=== PATIENT | female | born 1960 | race Caucasian/White ===

== ENCOUNTER 2016-08-02 07:45 | Day surgery (SDC) | payer OTHER ==
[~2016-08-02] VITALS: Ht 167.6 cm; Wt 130.9 kg
[2016-08-02] MEDS ORDERED: HYDR12.57 PO (08:07)
[2016-08-02] MEDS ORDERED: LEVO125T4 PO (08:07)
[2016-08-02 08:16] VITALS: BP 151/92; PULSE 65; RESP 20; TEMP 97.7; O2SAT 100
[2016-08-02] MEDS ORDERED: ceFAZolin 2 GM PREMIX 50 ML - implanted port/tunneled catheter insertion IV SCH (08:30)
[2016-08-02 09:07] LABS: APTT (PATIENT) 27.1 SEC (24.3-30.1); PROTHROMBIN TIME - PATIENT 10.9 SEC (9.8-11.6)
[2016-08-02] MEDS ORDERED: MIDAZOLAM HCL 5 MG/5 ML VIAL ONE (09:15)
[2016-08-02] MEDS ORDERED: fentaNYL CITRATE 250 MCG/5 ML AMP ONE (09:16)
[2016-08-02] MEDS ORDERED: LIDOCAINE 1%/EPINEPHrine 1:100,000 SOLN 30 ML VIAL ONE (09:54)
--- NOTE | 2016-08-02 10:26 | PD.RAD ---
Post Procedure Progress Note Procedure Date: Aug 02, 2016 Supervising Radiologist: Jake Bentley Estimated blood loss: 2CC Anesthesia: Local, Conscious Sedation Plan of Activity Patient to Unit: ROPU Patient Condition: Good Additional Comments: Port tubing easily removed from the right atria port and Residual tubing removed from the left chest See PACS Report for procedural detail/treatment Jake Bentley MD Aug 02, 2016 10:26
[2016-08-02 10:40] VITALS: BP 127/77; PULSE 55; RESP 18; TEMP 97.6; O2SAT 98
[2016-08-02 11:00] VITALS: BP 112/60; PULSE 54; RESP 16; O2SAT 94
[2016-08-02 11:30] VITALS: BP 109/58; PULSE 56; RESP 16; O2SAT 94
[2016-08-02 12:07] VITALS: BP 119/68; PULSE 57; RESP 18; O2SAT 97
--- NOTE | 2016-08-02 14:53 | RADRPT ---
EXAM DATE/TIME: 08/02/2016 09:28 COMPARISON: No previous studies available for comparison. INDICATIONS : Patient with history of breast cancer in need of Port catheter retrieval. MEDICAL HISTORY : Hypothyroidism, Obesity, Arthritis, Breast cancer, Back pain, Glaucoma SURGICAL HISTORY : Cholecystectomy, Mastectomy right breast, Umbilical hernia repair ENCOUNTER: Initial ACUITY: 2 weeks PAIN SCORE: 0/10 FLUORO TIME: 1.4 minutes IMAGE SERIES: 0 ACCESS SITE: Right Jugular vein SEDATION TIME: 30 minutes MEDICATION(S): 1.) 5 mg midazolam (Versed) IV 2.) 250 mcg fentanyl (Sublimaze) IV Prophylactic antibiotics were administered with appropriate pre-procedure timing. Vancomycin within 2 hrs of procedure, Ancef (or alternative) within 1 hr of procedure. DEVICE(S): 1.) Superior vena cava Amplatz [place] snare 15mm FINDINGS: The risk, benefits and potential complications informed body retrieval from the right atrium were dis cussed. Written consent was obtained. The patient's right neck was prepped and draped in the usual sterile fashion. The skin above the inte rnal jugular vein was anesthetized with 10 cc of 1% lidocaine. The patient received conscious sedatio n during the procedure as noted above. The right internal jugular vein was accessed under ultrasound visualization using a micropuncture ana lilia hnique. The micropuncture set was exchanged for a 10 Polish hemostatic sheath. A 0.035 angled Glidewi re was advanced out into the right atria. A snare catheter was advanced over the wire. The Infuse-a-P ort tubing was easily snared and removed from the patient without difficulty. The patient tolerated procedure well. Attention was then turned to the left chest. This are was prepped and draped in usual sterile fashion . The remaining portions of the Xlbdqb-j-Kazo were removed from the right chest without difficulty. CONCLUSION: 1. Successful removal of the piece of Eqooxv-l-Junu tubing from the right atria. 2. Successful removal the port from the left chest. 3. Followup fluoroscopic imaging was performed. No retained fragments were seen. Jake Bentley MD on August 02, 2016 at 14:49 Board Certified Radiologist. This report was verified electronically.
== END 2016-08-02 12:52 | disposition home or self-care (01) ==
LOC: HROP 07:45 → HRIP 07:48 → HROP 12:52
PROVIDERS: ATTEND Surgery
DX: Z45.2 Encounter for adjustment and management of vascular access device (principal); Z85.3 Personal history of malignant neoplasm of breast
CPT/HCPCS: 36590; 37197; 76937; 77001; 85610; 85730; 99152; 99153; C1769; C1894; J0690; J2250; J3010; C1773

== ENCOUNTER → 2016-10-18 | Day surgery (SDC) | payer OTHER ==
[~2016-10-18] MED LIST: HYDR12.57 PO; LACTATED RINGER'S 1000 ML INJ 1,000 ML ONE; LEVO125T4 PO; PROPOFOL 500 MG/50 ML BTL IV ONE
--- NOTE | 2016-10-18 07:54 | GIPROC ---
[facility] [address], [address] EGD PROCEDURE REPORT EXAM DATE: 10/18/2016 PATIENT NAME: Shira Campbell MR #: [id number] BIRTHDATE: 1960 ATTENDING: Kaz Kauffman MD ORDER #: [id number] CHIEF CLERK SHELTER: Tiffanie Bustillos LABORER MINE STATUS: outpatient INDICATIONS: The patient is a 56 yr old female here for an EGD due to Preoperative assessment PROCEDURE PERFORMED: EGD w/ biopsy MEDICATIONS: None and Per Anesthesia. TOPICAL ANESTHETIC: none CONSENT: The patient understands the risks and benefits of the procedure and understands that these risks include, but are not limited to: sedation, allergic reaction, infection, perforation and/or bleeding. Alternative means of evaluation and treatment include, among others: physical exam, x-rays, and/or surgical intervention. The patient elects to proceed with this endoscopic procedure. medical equipment was checked for proper function. Hand hygiene and appropriate measures for infection prevention was taken. After the risks, benefits and alternatives of the procedure were thoroughly explained, Informed consent was verified, confirmed and timeout was successfully executed by the treatment team. The patient was anesthetized with anesthesia and the EG-[id number] ([id number]) endoscope was introduced through the mouth and advanced to the second portion of the duodenum. Antrum was biopsy for H. pylori. Retroflexed views revealed no abnormalities The gastroscope was then slowly withdrawn and removed. The endoscopy was otherwise normal. ADVERSE EVENTS: There were no complications. IMPRESSIONS: 1. Normal endoscopy otherwise 2. Retroflexed views revealed no abnormalities RECOMMENDATIONS: Await biopsy results. Biopsy results will not be ready for 7-10 days. If you don't hear from us in two weeks, call our office for biopsy results. PATIENT CONDITION: fair DISPOSITION: Home REPEAT EXAM: NONE Kaz Kauffman MD eSigned: Kaz Kauffman MD 10/18/2016 7:54 AM cc: Jake Butt M.D.
== END | disposition home or self-care (01) ==
LOC: ESDC 06:05
PROVIDERS: ATTEND Surgery
DX: Z01.818 Encounter for other preprocedural examination (principal); K29.50 Unspecified chronic gastritis without bleeding
CPT/HCPCS: 00740; 43239; 88305; 88312; J3010; J7120

== ENCOUNTER 2017-02-10 09:00 | Inpatient (IN) | payer OTHER ==
[~2017-02-10] VITALS: Ht 167.6 cm; Wt 129.7 kg
[~2017-02-10 09:00] MED LIST changes: -LACTATED RINGER'S 1000 ML INJ 1,000 ML ONE; -PROPOFOL 500 MG/50 ML BTL IV ONE
[2017-02-12] MEDS ORDERED: ACETAMINOPHEN 1000 MG/100 ML 100 ML IV SCH (07:00)
[2017-02-12] MEDS ORDERED: metroNIDAZOLE 500 MG INJ 100 ML IV SCH (07:00)
[2017-02-12] MEDS ORDERED: INSULIN HUMAN REGULAR 1,000 UNITS/10 ML VIAL SQ PRN (07:00)
[2017-02-12] MEDS ORDERED: ceFAZolin 2 GM PREMIX 50 ML IV SCH (07:00)
[2017-02-12] MEDS ORDERED: ONDANSETRON HCL 4 MG/2 ML VIAL IV PUSH SCH (07:00)
[2017-02-12] MEDS ORDERED: METOPROLOL TARTRATE 25 MG TAB PO PRN (07:00)
[2017-02-12] MEDS ORDERED: APREPITANT 40 MG CAP PO SCH (07:00)
[2017-02-12] MEDS ORDERED: SODIUM CHLORID 0.9% 500 ML IV PRN (07:00)
[2017-02-12] MEDS ORDERED: POVIDONE IODINE 5% (ANTISEPSIS KIT) 4 APPLICATIONS EACH NARE PRN (07:00)
[2017-02-12] MEDS ORDERED: SCOPOLAMINE 1.5 MG PATCH T-DERMAL SCH (07:00)
[2017-02-12] MEDS ORDERED: CHLORHEXIDINE GLUCONATE 2 % 1 PACK (2 CLOTHS) TOPICAL PRN (07:00)
[2017-02-12] MEDS ORDERED: LACTATED RINGER'S 1000 ML IV PRN (07:00)
[2017-02-12] MEDS ORDERED: BUPIVACAINE/EPINEPHRINE 0.25% 50 ML VIAL ONE (10:54)
[2017-02-12] MEDS ORDERED: DEXAMETHASONE SOD PHOS 4 MG/ML VIAL ONE (11:59)
[2017-02-12] MEDS ORDERED: FAMOTIDINE 20 MG/2 ML VIAL ONE (11:59)
[2017-02-12] MEDS ORDERED: MIDAZOLAM HCL 2 MG/2 ML VIAL ONE (11:59)
[2017-02-12] MEDS ORDERED: METHYLENE BLUE 10 MG/ML VIAL OTHER ONE (13:07)
[2017-02-12] MEDS ORDERED: DO NOT ADM ANY ANTICOAGULANT DRUGS PRN (14:13)
[2017-02-12] MEDS ORDERED: diphenhydrAMINE HCL 50 MG/ML VIAL IV PUSH PRN (14:15)
[2017-02-12] MEDS ORDERED: ONDANSETRON HCL 4 MG/2 ML VIAL IV PUSH PRN (14:15)
[2017-02-12] MEDS ORDERED: ENALAPRILAT 1.25 MG/ML VIAL IV PUSH PRN (14:15)
[2017-02-12] MEDS ORDERED: ACETAMINOPHEN 325MG/HYDROcodone 7.5MG/15ML UDC PO PRN (14:15)
[2017-02-12] MEDS ORDERED: diphenhydrAMINE HCL ELIXIR 12.5 MG/5 ML CUP PO PRN (14:15)
[2017-02-12] MEDS ORDERED: Post-op Orders (for Pharmacy) MISC OTHER ONE (14:15)
[2017-02-12] MEDS ORDERED: SODIUM CHLORIDE 0.9% FLUSH 10 ML FLUSH IV FLUSH PRN (14:15)
[2017-02-12] MEDS ORDERED: *morphine SULFATE 8 MG/ML PERIprocedure ONLY ONE (14:20)
[2017-02-12] MEDS: D5-1/2 NS + KCL 20 MEQ INJ 1,000 ML IV SCH ×2 (14:30→23:38)
[2017-02-12] MEDS: METOCLOPRAMIDE HCL 10 MG/2 ML VIAL IV PUSH SCH ×2 (15:00→19:34)
[2017-02-12] MEDS: HYDROmorphone HCL PF 1 MG/ML VIAL IV PUSH PRN (15:11)
[2017-02-12 16:00] VITALS: BP 116/53; PULSE 55; RESP 17; TEMP 98.6; O2SAT 95
[2017-02-12] MEDS: ENOXAPARIN SODIUM 40 MG/0.4 ML SYRINGE SQ SCH (18:15)
[2017-02-12] MEDS: ACETAMINOPHEN 325MG/HYDROcodone 7.5MG/15ML UDC PO PRN (18:15)
[2017-02-12] MEDS: metroNIDAZOLE 500 MG INJ 100 ML IV SCH (19:35)
[2017-02-12] MEDS: SODIUM CHLORIDE 0.9% FLUSH 10 ML FLUSH IV FLUSH SCH (19:36)
[2017-02-12 20:27] VITALS: BP 102/58; PULSE 54; RESP 17; TEMP 96.4; O2SAT 92
--- NOTE | 2017-02-12 23:04 | MP ---
cc: LANNY BUTT DATE OF : 1960 DATE OF SURGERY: 02/12/2017 PREOPERATIVE DIAGNOSIS: Morbid obesity with a BMI of 47, complicated by hyperlipidemia. POSTOPERATIVE DIAGNOSIS Morbid obesity with a BMI of 47, complicated by hyperlipidemia. PROCEDURE Laparoscopic vertical sleeve gastrectomy over 36-Syriac bougie. SURGEON Lanny Butt MD. MANAGER DATA WAREHOUSING: Kaz Kauffman MD. Dr. Kauffman's assistance was necessary for the procedure due to the complexity of the procedure. Dr. Kauffman was utilized for manipulation and exposure during the procedure. The surgeon assistant provided by Sukumar was utilized at the back table during the procedure. ANESTHESIA General endotracheal anesthesia ESTIMATED BLOOD LOSS Scant FINDINGS Fatty liver, adhesions of omentum in the right lower quadrant. Nodule serosa of greater curve stomach SPECIMENS Stomach COMPLICATIONS: None. PROCEDURE IN DETAIL The patient was brought to the operating room and placed on the operating table in supine position, bilateral sequential inflation device placed on lower extremities. General anesthesia was instituted. Antibiotics was initiated. The abdomen was prepped and draped sterilely. A point 15 cm distal to the xiphoid in the midline was anesthetized with 0.25% Marcaine with epinephrine. A skin incision was made, 5-mm OptiView port placed under direct vision and pneumoperitoneum created. Under direct vision, three 5-mm left upper quadrant, a 15-mm right upper quadrant, 5-mm right upper quadrant ports placed. Prior to placement of all ports the skin and peritoneum were anesthetized with 0.25% Marcaine with epinephrine. Adhesions of the omentum in the right upper quadrant was taken down using the harmonic scalpel on initiation of the case. The patient was placed in reverse Trendelenburg position left side up, the Muriel-Flex retractor was placed. The left lobe of the liver was retracted. The vasculature along the greater curvature of the stomach was using harmonic scalpel starting a distance 5-cm proximal to the pylorus and carried towards the angle of His. The angle of His was taken down bluntly. Posterior ligamentous attachments were sharply . A 36-Syriac ViSiGi bougie was placed at the start of the case, was placed on suction. Division of the stomach started 5 cm proximal to the pylorus and carried towards the angle of His to completely excise approximately 80% of the stomach. This was performed using an [place] Flex stapler at the pylorus. The first firing was with a black load, followed by a green load and four gold loads. All staple loads were reinforced with SeamGuard. A distance of 2 cm was left from the angle incisura and the staple line and a distance of 1 cm left from the GE junction and the staple line. The pylorus was then occluded, methylene blue tinged saline was instilled. There was no evidence of extravasation. The gastrocolic ligament was then sutured to the posterior leaflet of the SeamGuard using a 2-0 Vicryl suture in a running manner. Bleeding points were controlled with Evicel. The excised stomach was removed from the peritoneal cavity through the 15-mm port site. The fascia at the 15-mm port site was approximated with 0 Vicryl suture. The CO2 was then released, all ports were removed, all skin incisions closed with 4-0 Monocryl. The abdominal wall was cleaned. A sterile dressing was placed. The patient was awakened and taken to the recovery room. MD ISRAEL Noriega/MIGUEL /5:51 PM /10:48 PM [email or web address]
[2017-02-13] VITALS (7 sets, daily range): BP systolic 104–130; BP diastolic 53–59; PULSE 48–56; RESP 16–18; TEMP 95.8–98.6; O2SAT 95–97
[2017-02-13] MEDS: ACETAMINOPHEN 325MG/HYDROcodone 7.5MG/15ML UDC PO PRN ×3 (00:30→11:37)
[2017-02-13] MEDS: metroNIDAZOLE 500 MG INJ 100 ML IV SCH ×2 (04:05→11:44)
[2017-02-13] MEDS: METOCLOPRAMIDE HCL 10 MG/2 ML VIAL IV PUSH SCH ×2 (04:05→09:39)
[2017-02-13] MEDS: HYDROmorphone HCL PF 1 MG/ML VIAL IV PUSH PRN (05:24)
[2017-02-13] MEDS: D5-1/2 NS + KCL 20 MEQ INJ 1,000 ML IV SCH ×2 (06:30→09:35)
[2017-02-13 08:17] LABS: AUTOMATED NEUTROPHIL # 7.9 TH/MM3 (1.8-7.7); BASOPHIL % 0.1 % (0.0-2.0); EOSINOPHIL % 0.2 % (0.0-4.0); HEMO FLAGS DIFF FINAL; LYMPH % 15.6 % (9.0-44.0); LYMPHOCYTE # 1.6 TH/MM3 (1.0-4.8); MEAN CELL VOLUME 85.5 FL (80.0-100.0); MEAN CORPUSCULAR HEMOGLOBIN 28.4 PG (27.0-34.0); MEAN CORPUSCULAR HGB CONC 33.2 % (32.0-36.0); MONO % 6.7 % (0.0-8.0); NEUT % 77.4 % (16.0-70.0); PLATELET COUNT 234 TH/MM3 (150-450); RED BLOOD COUNT 4.32 MIL/MM3 (4.00-5.30); RED CELL DISTRIBUTION WIDTH 14.4 % (11.6-17.2); WHITE BLOOD COUNT 10.2 TH/MM3 (4.0-11.0)
[2017-02-13 08:29] LABS: BICARBONATE 25.6 MEQ/L (21.0-32.0); MAGNESIUM 2.2 MG/DL (1.5-2.5); POTASSIUM 4.2 MEQ/L (3.5-5.1)
[2017-02-13] MEDS: SODIUM CHLORIDE 0.9% FLUSH 10 ML FLUSH IV FLUSH SCH (09:00)
[2017-02-13] MEDS ORDERED: PANTOPRAZOLE SOD 40 MG DELAYED RELEASE TAB PO SCH (09:00)
[2017-02-13] MEDS ORDERED: LEVOTHYROXINE SODIUM 125 MCG TAB PO SCH (11:30)
[2017-02-13] MEDS ORDERED: LIDOCAINE HCL 1% PF 5 ML AMPULE OTHER ONE (12:00)
[2017-02-13] MEDS ORDERED: PHENYLEPH/NS 1000 MCG/10 ML SYR IV ONE (12:00)
[2017-02-13] MEDS ORDERED: ePHEDrine/NS 25 MG/5 ML SYR IV ONE (12:00)
[2017-02-13] MEDS ORDERED: ROCURONIUM INJ 50 MG/5 ML SYRINGE IV PUSH ONE (12:00)
[2017-02-13] MEDS ORDERED: ONDANSETRON HCL 4 MG/2 ML VIAL IV PUSH ONE (12:00)
[2017-02-13] MEDS ORDERED: LACTATED RINGER'S 1000 ML INJ 1,000 ML IV ONE (12:00)
[2017-02-13] MEDS ORDERED: PROPOFOL 200 MG/20 ML AMP IV ONE (12:00)
[2017-02-13] MEDS ORDERED: KETOROLAC TROMETHAMINE 30 MG/ML (IVP) VIAL IV PUSH ONE (12:00)
[2017-02-13] MEDS ORDERED: GLYCOPYRROLATE 1 MG/5 ML SYRINGE IV PUSH ONE (12:00)
[2017-02-13] MEDS ORDERED: NEOSTIGMINE 3 MG/3 ML SYR IV ONE (12:00)
[2017-02-13] MEDS ORDERED: HYOSCYAMINE SOLN 0.125 MG/ML 15 ML BTL PO PRN (14:15)
[2017-02-13] MEDS ORDERED: METOCLOPRAMIDE HCL 10 MG/2 ML VIAL IV PUSH PRN (14:15)
--- NOTE | 2017-02-13 14:19 | HHI.PR ---
Subjective Subjective Notes Laying in bed, pain well controlled. Slowly increasing fluids. Objective Vitals/I&O Vital Signs Date Time Temp Pulse Resp B/P (MAP) Pulse Ox O2 Delivery O2 Flow Rate FiO2 02/13/17 13:26 95 02/13/17 12:00 97.3 48 17 109/54 (72) 02/12/17 15:00 Nasal Cannula 2 Labs Laboratory Tests Test 02/13/17 06:44 White Blood Count 10.2 Red Blood Count 4.32 Hemoglobin 12.3 Hematocrit 37.0 Mean Corpuscular Volume 85.5 Mean Corpuscular Hemoglobin 28.4 Mean Corpuscular Hemoglobin Concent 33.2 Red Cell Distribution Width 14.4 Platelet Count 234 Mean Platelet Volume 9.6 Neutrophils (%) (Auto) 77.4 Lymphocytes (%) (Auto) 15.6 Monocytes (%) (Auto) 6.7 Eosinophils (%) (Auto) 0.2 Basophils (%) (Auto) 0.1 Neutrophils # (Auto) 7.9 Lymphocytes # (Auto) 1.6 Monocytes # (Auto) 0.7 Eosinophils # (Auto) 0.0 Basophils # (Auto) 0.0 CBC Comment DIFF FINAL Differential Comment Blood Urea Nitrogen 17 Creatinine 0.70 Random Glucose 99 Calcium Level 8.6 Magnesium Level 2.2 Sodium Level 137 Potassium Level 4.2 Chloride Level 104 Carbon Dioxide Level 25.6 Anion Gap 7 Estimat Glomerular Filtration Rate 86 Cardiovascular: Regular Lungs: Clear Abdomen: Post-op tenderness Extremities: Perfused Wound Wound : Wound Location: Abdomen Appearance: Clean & Dry A/P Assessment and Plan 56yo F POD#1 Laparoscopic VSG -Continue with frequent ambulation -Continue to increase fluids as tolerated Discharge Planning D/C home possibly today Ham Sheppard Feb 13, 2017 14:19
[2017-02-13] MEDS: ENOXAPARIN SODIUM 40 MG/0.4 ML SYRINGE SQ SCH (18:40)
== END 2017-02-13 20:47 | disposition home or self-care (01) | DRG 621 ==
LOC: HSDI 02-12 06:12 → N07B 02-12 15:47
PROVIDERS: ADMIT Surgery; ATTEND Surgery
PROC: 0DB64Z3 Excision of Stomach, Percutaneous Endoscopic Approach, Vertical (ICD-10-PCS; principal; 2017-02-12 12:09)
DX: E66.01 Morbid (severe) obesity due to excess calories (principal); K76.0 Fatty (change of) liver, not elsewhere classified; I10 Essential (primary) hypertension; E78.5 Hyperlipidemia, unspecified; Z68.42 Body mass index [BMI] 45.0-49.9, adult; K31.9 Disease of stomach and duodenum, unspecified; E03.9 Hypothyroidism, unspecified; Z87.891 Personal history of nicotine dependence; Z85.3 Personal history of malignant neoplasm of breast
CPT/HCPCS: 80048; 83735; 85025; 88305; 88307; 88341; 88342; 94150; J0131; J0690; J1100; J1170; J1650; J1885; J2250; J2270; J2370; J2405; J2710; J2765; J3010; J3480; J7120; J8501